=== PATIENT | female | born 1960 | race Caucasian/White ===

== ENCOUNTER 2019-12-27 07:21 | Inpatient (IN) ==
[2019-12-27] MEDS ORDERED: HYDROmorphone 2 MG/1 ML VIAL IV STA ×2 (07:31→07:54)
[2019-12-27] MEDS ORDERED: ONDANSETRON 4 MG/2 ML VIAL IV STA (07:31)
[2019-12-27 08:35] LABS: Basophils % 0.2 % (0.0-0.8); Hematocrit 25.8 VOL% (35.7-47.0); Hemoglobin 7.9 GM/DL (12.0-16.0); Immature Granulocytes % 0.4 %; Immature Granulocytes Absolute 0.04 #; Lymphocytes # 0.8 10*3/uL (1.4-4.0); Lymphocytes % 8.9 % (21.3-54.2); Mean Corpuscular HGB Conc 30.6 GM/DL (32-36); Mean Corpuscular Volume 75.4 FL (87-102); Mean Platelet Volume 11.2 FL (9.6-12.0); Monocytes % 3.4 % (1.7-12.7); Neutrophils % 87.1 % (38.7-73.9); Platelet Count 477 T/CUMM (130-400); Red Blood Count 3.42 MC/CUMM (3.8-5.5); Red Cell Distribution Width 21.2 % (9.3-17.3); White Blood Count 9.1 T/CUMM (4-12)
[2019-12-27 08:55] LABS: Albumin 1.2 G/DL (3.4-5.0); Bilirubin,Total 0.6 MG/DL (0.2-1.0); Calcium 8.2 MG/DL (8.5-10.1); Osmolality,Calculated 278.5 MOS/KG (273-304); Total Protein 7.3 G/DL (6.4-8.3)
[2019-12-27 09:01] LABS: Anisocytosis 1+; Band Neutrophils 32 % (0-10); Eosinophils 1 % (0-10); Lymphocytes 7 % (20-55); Platelet Estimate Normal; Segmented Neutrophils 57 % (50-85); Total Cells Counted 100
[2019-12-27] MEDS ORDERED: ACETAMINOPHEN 325 MG TABLET PO PRN (10:07)
[2019-12-27] MEDS ORDERED: ALBUTEROL 2.5 MG/3 ML NEB RESP TX PRN (10:07)
[2019-12-27] MEDS ORDERED: ONDANSETRON 4 MG/2 ML VIAL IV PRN (10:07)
[2019-12-27] MEDS ORDERED: ALBUTEROL/IPRATROPIUM 3 ML NEB RESP TX PRN (10:07)
[2019-12-27] MEDS ORDERED: SODIUM CHLORIDE 0.9% 1,000 ML IV STA (10:16)
[2019-12-27] MEDS ORDERED: ENOXAPARIN 40 MG/0.4 ML SYRINGE SUBCUT SCH (10:30)
[2019-12-27] MEDS ORDERED: LEVOFLOXACIN INJ 750 MG in PREMIX 1 EACH IV SCH (11:00)
[2019-12-27 11:10] LABS: ABG Base Excess 0.1 MMOL/L (-2.5-2.5); ABG HCO3 24.6 MMOL/L (20-26); ABG PCO2 34.4 MM HG (35-48); ABG PH 7.449 (7.35-7.45); ABG TCO2 22.2 MMOL/L (23-27)
[2019-12-27 11:11] LABS: Allen Test Positive
[2019-12-27] MEDS: FAMOTIDINE 20 MG/2 ML VIAL IV SCH ×2 (11:15→22:11)
[2019-12-27] MEDS ORDERED: ENOXAPARIN 150 MG/ML SYRINGE SUBCUT SCH (11:30)
[2019-12-27] MEDS ORDERED: AMIODARONE INJ 150 MG in DEXTROSE 5% 100 ML IV ONE (12:24)
[2019-12-27] MEDS ORDERED: AMIODARONE INJ 450 MG in DEXTROSE 5% 241 ML IV SCH (12:30)
[2019-12-27] MEDS ORDERED: SODIUM CHLORIDE 0.9% 1,000 ML IV PRN (12:59)
[2019-12-27] MEDS ORDERED: PROCHLORPERAZINE 25 MG SUPP RECTAL PRN (13:01)
[2019-12-27] MEDS ORDERED: SODIUM CHLORIDE 0.9% 1,000 ML IV SCH (13:30)
[2019-12-27 13:33] LABS: Apearance,Urine Slightly Hazy (Clear); Bilirubin,Urine Negative (Negative); Blood, Urine Large mg/dL (Negative); Glucose,Urine (UA) 50 mg/dL (Negative); Ketones,Urine Negative (Negative); Nitrite,Urine Negative (Negative); Protein,Urine 100 MG/DL; RBC,Urine 4858 /HPF (0-4); Squamous Epithelial Cell,Urine Occasional /HPF (0-10); Urine Color Red (Yellow); Urine Specific Gravity 1.013 (1.001-1.035); Urine Urobilinogen < 2.0 EU/DL (0.2-1.0); WBC,Urine 448 /HPF (0-6)
[2019-12-27] MEDS: PIPERACILLIN/TAZOBACTAM 3,375 MG in SODIUM CHLORIDE 0.9% 100 ML IV SCH ×2 (13:35→20:50)
[2019-12-27] MEDS ORDERED: GLUCAGON 1 MG VIAL IM PRN (14:09)
[2019-12-27] MEDS ORDERED: DEXTROSE 10% 250 ML BAG IV PRN (14:22)
[2019-12-27] MEDS ORDERED: VANCOMYCIN INJ 2,000 MG in SODIUM CHLORIDE 0.9% 500 ML IV ONE (14:30)
[2019-12-27] MEDS: MULTIVITAMIN IV SCH (16:34)
[2019-12-27] MEDS: TRACE ELEMENTS IV SCH (16:34)
[2019-12-27] MEDS: [UNRECOGNIZED DRUG - OTHER] IV SCH (16:34)
[2019-12-27] MEDS: PROCHLORPERAZINE 10 MG TABLET PO PRN ×2 (16:47→20:59)
[2019-12-27] MEDS: HYDROmorphone 2 MG/1 ML VIAL IV PRN ×2 (16:55→23:15)
[2019-12-27] MEDS ORDERED: DEXTROSE 10% 1,000 ML IV PRN (17:00)
[2019-12-27] MEDS: INSULIN REGULAR 100 UNIT/ML SUBCUT SCH (17:51)
[2019-12-27] MEDS ORDERED: FUROSEMIDE 40 MG/4 ML VIAL IV ONE (19:45)
[2019-12-27] MEDS: AMIODARONE INJ 450 MG in DEXTROSE 5% 241 ML IV SCH (20:49)
[2019-12-27] MEDS: POTASSIUM CHLORIDE RIDER 10 MEQ in PREMIX 1 EACH IV PRN ×3 (21:00→23:15)
[2019-12-28] MEDS: ONDANSETRON 4 MG/2 ML VIAL IV PRN ×2 (00:06→08:51)
[2019-12-28] MEDS: POTASSIUM CHLORIDE RIDER 10 MEQ in PREMIX 1 EACH IV PRN ×5 (00:17→16:45)
[2019-12-28] MEDS: PROCHLORPERAZINE 10 MG TABLET PO PRN ×2 (00:38→04:24)
[2019-12-28] MEDS: INSULIN REGULAR 100 UNIT/ML SUBCUT SCH ×4 (00:51→17:47)
[2019-12-28 01:08] LABS: Hematocrit 33.9 VOL% (35.7-47.0); Hemoglobin 10.4 GM/DL (12.0-16.0)
[2019-12-28] MEDS: VANCOMYCIN INJ 1,250 MG in SODIUM CHLORIDE 0.9% 250 ML IV SCH ×2 (04:00→15:32)
[2019-12-28] MEDS: PIPERACILLIN/TAZOBACTAM 3,375 MG in SODIUM CHLORIDE 0.9% 100 ML IV SCH ×3 (04:30→21:55)
[2019-12-28 05:24] LABS: Basophils % 0.1 % (0.0-0.8); Hematocrit 33.3 VOL% (35.7-47.0); Immature Granulocytes % 1.9 %; Immature Granulocytes Absolute 0.25 #; Lymphocytes # 0.8 10*3/uL (1.4-4.0); Lymphocytes % 5.9 % (21.3-54.2); Mean Corpuscular Volume 78.2 FL (87-102); Mean Platelet Volume 11.1 FL (9.6-12.0); Monocytes % 1.6 % (1.7-12.7); Neutrophils % 90.5 % (38.7-73.9); Platelet Count 415 T/CUMM (130-400); Red Blood Count 4.26 MC/CUMM (3.8-5.5); Red Cell Distribution Width 20.2 % (9.3-17.3); White Blood Count 13.4 T/CUMM (4-12)
[2019-12-28 05:48] LABS: Band Neutrophils 10 % (0-10); Lymphocytes 7 % (20-55); Segmented Neutrophils 78 % (50-85); Total Cells Counted 100
[2019-12-28 05:50] LABS: Anisocytosis 1+; Hypochromasia 1+; Microcytosis 1+; Platelet Estimate Increased
[2019-12-28 06:08] LABS: Calcium 8.3 MG/DL (8.5-10.1); Osmolality,Calculated 284.5 MOS/KG (273-304)
[2019-12-28 06:16] LABS: Prealbumin < 3.0 MG/DL (20-40); Triglycerides 132 MG/DL (2-150)
[2019-12-28] MEDS: HYDROmorphone 2 MG/1 ML VIAL IV PRN ×2 (08:51→21:56)
[2019-12-28] MEDS: FAMOTIDINE 20 MG/2 ML VIAL IV SCH ×2 (10:22→21:57)
[2019-12-28] MEDS ORDERED: ONDANSETRON 4 MG/2 ML VIAL IV PRN (10:24)
[2019-12-28] MEDS: AMIODARONE INJ 450 MG in DEXTROSE 5% 241 ML IV SCH (11:43)
[2019-12-28] MEDS ORDERED: MIDAZOLAM 2 MG/2 ML VIAL IV ONE ×2 (12:28→12:50)
[2019-12-28] MEDS ORDERED: ETOMIDATE 20 MG/10 ML VIAL IV ONE ×3 (12:28→12:44)
[2019-12-28] MEDS ORDERED: NOREPINEPHRINE 4 MG/4 ML VIAL IV ONE (13:00)
[2019-12-28] MEDS ORDERED: NOREPINEPHRINE 8 MG in SODIUM CHLORIDE 0.9% 242 ML IV PRN (13:10)
[2019-12-28 13:43] LABS: ABG Base Excess -2.6 MMOL/L (-2.5-2.5); ABG HCO3 22.3 MMOL/L (20-26); ABG Oxygen Saturation 99.3 % (95-100); ABG PCO2 62.5 MM HG (35-48); ABG PH 7.229 (7.35-7.45); ABG TCO2 24.2 MMOL/L (23-27); Allen Test Positive; Pt O2 Delivery Device Ventilator
[2019-12-28] MEDS ORDERED: FAT EMULSION 20% 250 ML IV SCH (14:00)
[2019-12-28] MEDS ORDERED: FUROSEMIDE 40 MG/4 ML VIAL IV ONE (14:51)
[2019-12-28] MEDS: TRACE ELEMENTS (5) 1 ML, MULTIVITAMIN INJ 10 ML, INSULIN REGULAR 10 UNIT in AMINO ACIDS... IV SCH (16:18)
[2019-12-28] MEDS: [UNRECOGNIZED DRUG - OTHER] IV SCH (16:20)
[2019-12-28] MEDS: methylPREDNISolone SOD SUC 40 MG/1 ML VIAL IV SCH ×2 (16:20→22:05)
[2019-12-28] MEDS: TRACE ELEMENTS IV SCH (16:20)
[2019-12-28] MEDS: MULTIVITAMIN IV SCH (16:20)
[2019-12-29] MEDS: VANCOMYCIN INJ 1,250 MG in SODIUM CHLORIDE 0.9% 250 ML IV SCH (02:30)
[2019-12-29] MEDS: POTASSIUM CHLORIDE RIDER 10 MEQ in PREMIX 1 EACH IV PRN ×2 (02:31→03:46)
[2019-12-29] MEDS: HYDROmorphone 2 MG/1 ML VIAL IV PRN ×2 (02:31→07:58)
[2019-12-29] MEDS: INSULIN REGULAR 100 UNIT/ML SUBCUT SCH ×5 (02:35→23:05)
[2019-12-29] MEDS: AMIODARONE INJ 450 MG in DEXTROSE 5% 241 ML IV SCH (02:36)
[2019-12-29 04:22] LABS: Basophils # 0.1 10*3/uL (0.0-0.2); Basophils % 0.5 % (0.0-0.8); Hematocrit 26.3 VOL% (35.7-47.0); Immature Granulocytes % 1.1 %; Lymphocytes # 0.6 10*3/uL (1.4-4.0); Lymphocytes % 6.2 % (21.3-54.2); Mean Corpuscular HGB Conc 30.4 GM/DL (32-36); Mean Corpuscular Volume 77.4 FL (87-102); Mean Platelet Volume 12.1 FL (9.6-12.0); Monocytes % 2.6 % (1.7-12.7); Neutrophils % 89.6 % (38.7-73.9); Platelet Count 312 T/CUMM (130-400); Red Cell Distribution Width 20.2 % (9.3-17.3); White Blood Count 9.4 T/CUMM (4-12)
[2019-12-29 04:34] LABS: Albumin 0.9 G/DL (3.4-5.0); Bilirubin,Total 1.9 MG/DL (0.2-1.0); Calcium 8.3 MG/DL (8.5-10.1); Total Protein 6.4 G/DL (6.4-8.3)
[2019-12-29 04:48] LABS: Anisocytosis 1+; Band Neutrophils 10 % (0-10); Hypochromasia 1+; Lymphocytes 5 % (20-55); Myelocytes 1 %; Ovalocytes 1+; Segmented Neutrophils 82 % (50-85); Total Cells Counted 100
[2019-12-29 04:49] LABS: Platelet Estimate Normal; Target Cells Few
[2019-12-29 04:50] LABS: ABG Base Excess -0.9 MMOL/L (-2.5-2.5); ABG HCO3 23.7 MMOL/L (20-26); ABG Oxygen Saturation 99.5 % (95-100); ABG PCO2 40.2 MM HG (35-48); ABG PH 7.384 (7.35-7.45); ABG TCO2 22.3 MMOL/L (23-27); Allen Test Positive; Pt O2 Delivery Device Ventilator
[2019-12-29] MEDS: PIPERACILLIN/TAZOBACTAM 3,375 MG in SODIUM CHLORIDE 0.9% 100 ML IV SCH ×3 (05:50→20:55)
[2019-12-29] MEDS: methylPREDNISolone SOD SUC 40 MG/1 ML VIAL IV SCH ×3 (06:37→22:33)
[2019-12-29] MEDS: FAMOTIDINE 20 MG/2 ML VIAL IV SCH ×2 (09:30→22:36)
[2019-12-29] MEDS: fentaNYL INJ 1,250 MCG in SODIUM CHLORIDE 0.9% 225 ML IV PRN (13:31)
[2019-12-29] MEDS: MULTIVITAMIN IV SCH (16:00)
[2019-12-29] MEDS: TRACE ELEMENTS IV SCH (16:00)
[2019-12-29] MEDS: INSULIN REGULAR IV SCH (16:00)
[2019-12-29] MEDS: [UNRECOGNIZED DRUG - OTHER] IV SCH (16:00)
[2019-12-29] MEDS: TRACE ELEMENTS (5) 1 ML, MULTIVITAMIN INJ 10 ML, INSULIN REGULAR 10 UNIT in AMINO ACIDS... IV SCH (16:28)
[2019-12-30] MEDS: VANCOMYCIN INJ 1,250 MG in SODIUM CHLORIDE 0.9% 250 ML IV SCH ×2 (02:07→20:30)
[2019-12-30] MEDS: fentaNYL INJ 1,250 MCG in SODIUM CHLORIDE 0.9% 225 ML IV PRN ×2 (03:35→15:45)
[2019-12-30 03:55] LABS: ABG Base Excess -0.3 MMOL/L (-2.5-2.5); ABG HCO3 24.2 MMOL/L (20-26); ABG Oxygen Saturation 99.3 % (95-100); ABG PCO2 43.8 MM HG (35-48); ABG PH 7.366 (7.35-7.45); ABG TCO2 23.3 MMOL/L (23-27)
[2019-12-30 03:58] LABS: Basophils # 0.1 10*3/uL (0.0-0.2); Basophils % 0.3 % (0.0-0.8); Hemoglobin 7.7 GM/DL (12.0-16.0); Immature Granulocytes % 2.8 %; Immature Granulocytes Absolute 0.45 #; Lymphocytes # 0.7 10*3/uL (1.4-4.0); Lymphocytes % 4.4 % (21.3-54.2); Mean Corpuscular HGB Conc 30.8 GM/DL (32-36); Mean Corpuscular Volume 77.2 FL (87-102); Mean Platelet Volume 12.2 FL (9.6-12.0); Monocytes % 3.1 % (1.7-12.7); Neutrophils % 89.4 % (38.7-73.9); Platelet Count 324 T/CUMM (130-400); Red Blood Count 3.24 MC/CUMM (3.8-5.5); Red Cell Distribution Width 20.2 % (9.3-17.3); White Blood Count 16.2 T/CUMM (4-12)
[2019-12-30 04:20] LABS: Calcium 8.3 MG/DL (8.5-10.1)
[2019-12-30 04:34] LABS: Band Neutrophils 2 % (0-10); Lymphocytes 6 % (20-55); Metamyelocytes 2 %; Segmented Neutrophils 87 % (50-85); Total Cells Counted 100
[2019-12-30 04:35] LABS: Hypochromasia 1+; Platelet Estimate Normal
[2019-12-30] MEDS: PIPERACILLIN/TAZOBACTAM 3,375 MG in SODIUM CHLORIDE 0.9% 100 ML IV SCH ×3 (04:58→22:00)
[2019-12-30] MEDS: INSULIN REGULAR 100 UNIT/ML SUBCUT SCH ×4 (05:06→23:01)
[2019-12-30] MEDS: methylPREDNISolone SOD SUC 40 MG/1 ML VIAL IV SCH ×3 (06:01→23:01)
[2019-12-30] MEDS: FAMOTIDINE 20 MG/2 ML VIAL IV SCH ×2 (10:09→23:00)
[2019-12-30] MEDS: MULTIVITAMIN IV SCH (15:45)
[2019-12-30] MEDS: TRACE ELEMENTS IV SCH (15:45)
[2019-12-30] MEDS: INSULIN REGULAR IV SCH (15:45)
[2019-12-30] MEDS: [UNRECOGNIZED DRUG - OTHER] IV SCH (15:45)
[2019-12-30] MEDS: FUROSEMIDE 20 MG/2 ML VIAL IV SCH (15:46)
[2019-12-31] MEDS: fentaNYL INJ 1,250 MCG in SODIUM CHLORIDE 0.9% 225 ML IV PRN ×3 (01:53→22:19)
[2019-12-31 03:33] LABS: Basophils # 0.1 10*3/uL (0.0-0.2); Basophils % 0.3 % (0.0-0.8); Hematocrit 26.1 VOL% (35.7-47.0); Hemoglobin 7.8 GM/DL (12.0-16.0); Immature Granulocytes % 4.9 %; Immature Granulocytes Absolute 0.89 #; Lymphocytes # 0.6 10*3/uL (1.4-4.0); Lymphocytes % 3.4 % (21.3-54.2); Mean Corpuscular HGB Conc 29.9 GM/DL (32-36); Mean Corpuscular Volume 77.4 FL (87-102); Mean Platelet Volume 12.2 FL (9.6-12.0); Monocytes % 3.5 % (1.7-12.7); Neutrophils % 87.9 % (38.7-73.9); Platelet Count 347 T/CUMM (130-400); Red Blood Count 3.37 MC/CUMM (3.8-5.5); Red Cell Distribution Width 20.6 % (9.3-17.3)
[2019-12-31 03:34] LABS: Allen Test Positive; Pt O2 Delivery Device Ventilator
[2019-12-31 03:35] LABS: ABG Base Excess 0.1 MMOL/L (-2.5-2.5); ABG HCO3 24.5 MMOL/L (20-26); ABG PCO2 41.6 MM HG (35-48); ABG PH 7.388 (7.35-7.45); ABG TCO2 23.3 MMOL/L (23-27)
[2019-12-31 03:53] LABS: Calcium 8.6 MG/DL (8.5-10.1); Osmolality,Calculated 294.4 MOS/KG (273-304)
[2019-12-31] MEDS: PIPERACILLIN/TAZOBACTAM 3,375 MG in SODIUM CHLORIDE 0.9% 100 ML IV SCH ×3 (04:59→21:57)
[2019-12-31] MEDS: INSULIN REGULAR 100 UNIT/ML SUBCUT SCH ×3 (05:12→18:31)
[2019-12-31] MEDS: methylPREDNISolone SOD SUC 40 MG/1 ML VIAL IV SCH ×2 (06:01→16:02)
[2019-12-31 06:25] LABS: Band Neutrophils 1 % (0-10); Hypochromasia 1+; Lymphocytes 4 % (20-55); Ovalocytes Slight; Platelet Estimate Adequate; Segmented Neutrophils 90 % (50-85); Total Cells Counted 100
[2019-12-31] MEDS ORDERED: FUROSEMIDE 20 MG/2 ML VIAL ONE (09:43)
[2019-12-31] MEDS: FUROSEMIDE 20 MG/2 ML VIAL IV SCH (09:49)
[2019-12-31] MEDS: FAMOTIDINE 20 MG/2 ML VIAL IV SCH ×2 (09:55→21:59)
[2019-12-31] MEDS ORDERED: VECURONIUM 10 MG VIAL IV ONE (10:43)
[2019-12-31] MEDS: VECURONIUM 100 MG in SODIUM CHLORIDE 0.9% 100 ML IV SCH (11:39)
[2019-12-31] MEDS: FUROSEMIDE 40 MG/4 ML VIAL IV SCH (15:57)
[2019-12-31] MEDS: INSULIN REGULAR IV SCH (15:57)
[2019-12-31] MEDS: MULTIVITAMIN IV SCH (15:57)
[2019-12-31] MEDS: [UNRECOGNIZED DRUG - OTHER] IV SCH (15:57)
[2019-12-31] MEDS: TRACE ELEMENTS IV SCH (15:57)
[2019-12-31] MEDS: VANCOMYCIN INJ 1,250 MG in SODIUM CHLORIDE 0.9% 250 ML IV SCH (21:49)
[2020-01-01] MEDS: methylPREDNISolone SOD SUC 40 MG/1 ML VIAL IV SCH ×4 (00:01→23:01)
[2020-01-01] MEDS: INSULIN REGULAR 100 UNIT/ML SUBCUT SCH ×4 (00:12→17:59)
[2020-01-01 03:49] LABS: ABG Base Excess -4.3 MMOL/L (-2.5-2.5); ABG HCO3 20.8 MMOL/L (20-26); ABG Oxygen Saturation 97.2 % (95-100); ABG TCO2 28.3 MMOL/L (23-27); Allen Test Positive; Pt O2 Delivery Device Ventilator
[2020-01-01 03:51] LABS: ABG PH 7.058 (7.35-7.45)
[2020-01-01 05:55] LABS: Prealbumin 15.2 MG/DL (20-40)
[2020-01-01] MEDS: PIPERACILLIN/TAZOBACTAM 3,375 MG in SODIUM CHLORIDE 0.9% 100 ML IV SCH ×3 (07:13→23:02)
[2020-01-01 07:37] LABS: ABG HCO3 21.9 MMOL/L (20-26); ABG Oxygen Saturation 98.2 % (95-100); ABG TCO2 27.1 MMOL/L (23-27); Allen Test Positive; Pt O2 Delivery Device Ventilator
[2020-01-01 07:41] LABS: ABG PCO2 85.8 MM HG (35-48)
[2020-01-01 10:11] LABS: Calcium 8.7 MG/DL (8.5-10.1); Osmolality,Calculated 297.7 MOS/KG (273-304)
[2020-01-01] MEDS: FAMOTIDINE 20 MG/2 ML VIAL IV SCH ×2 (10:12→21:46)
[2020-01-01] MEDS: FUROSEMIDE 40 MG/4 ML VIAL IV SCH ×2 (10:15→17:52)
[2020-01-01 10:30] LABS: Basophils # 0.2 10*3/uL (0.0-0.2); Basophils % 0.6 % (0.0-0.8); Immature Granulocytes % 9.1 %; NRBC # 0.03 10*3/uL; Red Cell Distribution Width 21.2 % (9.3-17.3)
[2020-01-01 10:34] LABS: Hematocrit 34.9 VOL% (35.7-47.0); Immature Granulocytes Absolute 2.74 #; Lymphocytes # 0.8 10*3/uL (1.4-4.0); Lymphocytes % 2.7 % (21.3-54.2); Mean Corpuscular HGB Conc 28.4 GM/DL (32-36); Mean Corpuscular Volume 83.1 FL (87-102); Mean Platelet Volume 11.4 FL (9.6-12.0); Monocytes % 4.8 % (1.7-12.7); Neutrophils % 82.8 % (38.7-73.9); Platelet Count 504 T/CUMM (130-400)
[2020-01-01 10:35] LABS: White Blood Count 30.1 T/CUMM (4-12)
[2020-01-01 10:36] LABS: Hemoglobin 9.9 GM/DL (12.0-16.0)
[2020-01-01 10:41] LABS: Band Neutrophils 2 % (0-10); Hypochromasia 1+; Lymphocytes 3 % (20-55); Segmented Neutrophils 85 % (50-85); Total Cells Counted 100
[2020-01-01 10:42] LABS: Microcytosis 1+
[2020-01-01 10:43] LABS: Anisocytosis 1+
[2020-01-01] MEDS: VECURONIUM 100 MG in SODIUM CHLORIDE 0.9% 100 ML IV SCH ×2 (11:02→18:17)
[2020-01-01] MEDS ORDERED: hydrALAZINE 20 MG/1 ML VIAL IV PRN (13:00)
[2020-01-01] MEDS: TRACE ELEMENTS IV SCH (17:03)
[2020-01-01] MEDS: MULTIVITAMIN IV SCH ×2 (17:03→17:52)
[2020-01-01] MEDS: [UNRECOGNIZED DRUG - OTHER] IV SCH (17:03)
[2020-01-01] MEDS: INSULIN REGULAR IV SCH ×2 (17:03→17:52)
[2020-01-01] MEDS: [UNRECOGNIZED DRUG - OTHER] IV SCH (17:52)
[2020-01-01] MEDS: VANCOMYCIN INJ 1,250 MG in SODIUM CHLORIDE 0.9% 250 ML IV SCH (21:45)
[2020-01-01] MEDS: fentaNYL INJ 1,250 MCG in SODIUM CHLORIDE 0.9% 225 ML IV PRN (21:49)
[2020-01-02] MEDS: INSULIN REGULAR 100 UNIT/ML SUBCUT SCH ×4 (00:31→18:12)
[2020-01-02 06:29] VITALS: BP 171/77
[2020-01-02] MEDS: methylPREDNISolone SOD SUC 40 MG/1 ML VIAL IV SCH ×2 (06:37→15:31)
[2020-01-02] MEDS: FUROSEMIDE 40 MG/4 ML VIAL IV SCH ×2 (07:57→18:09)
[2020-01-02] MEDS: PIPERACILLIN/TAZOBACTAM 3,375 MG in SODIUM CHLORIDE 0.9% 100 ML IV SCH ×2 (08:00→15:31)
[2020-01-02 08:44] LABS: Basophils # 0.1 10*3/uL (0.0-0.2); Basophils % 0.4 % (0.0-0.8); Hematocrit 33.1 VOL% (35.7-47.0); Immature Granulocytes % 8.2 %; Lymphocytes # 0.6 10*3/uL (1.4-4.0); Lymphocytes % 2.4 % (21.3-54.2); Mean Corpuscular Volume 81.3 FL (87-102); Mean Platelet Volume 11.2 FL (9.6-12.0); Monocytes % 3.3 % (1.7-12.7); Neutrophils % 85.7 % (38.7-73.9); Platelet Count 463 T/CUMM (130-400); Red Blood Count 4.07 MC/CUMM (3.8-5.5); Red Cell Distribution Width 20.8 % (9.3-17.3); White Blood Count 24.5 T/CUMM (4-12)
[2020-01-02 08:45] LABS: Hemoglobin 9.6 GM/DL (12.0-16.0)
[2020-01-02 08:46] LABS: Band Neutrophils 1 % (0-10); Hypochromasia 1+; Lymphocytes 5 % (20-55); Ovalocytes Slight; Platelet Estimate Adequate; Segmented Neutrophils 90 % (50-85); Total Cells Counted 100
[2020-01-02 08:47] LABS: Microcytosis 1+
[2020-01-02 08:53] LABS: Albumin 1.4 G/DL (3.4-5.0); Bilirubin,Total 0.8 MG/DL (0.2-1.0); Calcium 8.6 MG/DL (8.5-10.1); Osmolality,Calculated 300.3 MOS/KG (273-304); Total Protein 7.4 G/DL (6.4-8.3)
[2020-01-02 08:54] LABS: ABG Base Excess 4.3 MMOL/L (-2.5-2.5); ABG HCO3 28.3 MMOL/L (20-26); ABG Oxygen Saturation 98.7 % (95-100); ABG PH 7.261 (7.35-7.45); Allen Test Positive; Pt O2 Delivery Device Ventilator
[2020-01-02 09:00] LABS: ABG PCO2 74.8 MM HG (35-48)
[2020-01-02] MEDS: FAMOTIDINE 20 MG/2 ML VIAL IV SCH (14:15)
[2020-01-02] MEDS: VECURONIUM 100 MG in SODIUM CHLORIDE 0.9% 100 ML IV SCH (15:05)
[2020-01-02] MEDS ORDERED: MORPHINE 10 MG/1 ML VIAL IV PRN (17:12)
[2020-01-02] MEDS ORDERED: LORazepam 2 MG/1 ML VIAL IV PRN (17:13)
[2020-01-02] MEDS: [UNRECOGNIZED DRUG - OTHER] IV SCH (18:11)
[2020-01-02] MEDS: INSULIN REGULAR IV SCH (18:11)
[2020-01-02] MEDS: MULTIVITAMIN IV SCH (18:11)
== END 2020-01-02 17:51 | disposition expired | DRG 207 ==
LOC: N.ED 07:21 → SUPCPDRO 10:07 → N.EDINP 10:07 → SUATTDRO 10:07 → N.CC 10:55
PROVIDERS: ADMIT Internal Medicine; ATTEND Internal Medicine